=== PATIENT | male | born 1990 | race Caucasian/White ===

== ENCOUNTER 2016-09-13 21:59 | Emergency (ER) | payer BC, OTHER ==
[2016-09-13 22:14] VITALS: BP 139/81
[2016-09-13] MEDS ORDERED: Acetaminophen/oxyCODONE 325-5 MG Tab PO ONE (22:23)
[2016-09-13] MEDS ORDERED: traMADol 50 MG Tab PO ONE ×2 (22:25→22:26)
--- NOTE | 2016-09-13 22:31 | EDM.PDOC ---
ED HPI GENERAL MEDICAL PROBLEM - General Chief Complaint: General Stated Complaint: TOOTHPAIN Time Seen by Provider: 09/13/16 22:10 Source of Information: Reports: Patient, Family History Limitations: Reports: No limitations - History of Present Illness INITIAL COMMENTS - FREE TEXT/NARRATIVE: José comes in with dental pain following extensive restorations involving #18, # 19, #20 and is unable to sleep. His follow up appt with DDS is later this week. His general health is good. Tooth/Teeth Pain Score (Numeric/FACES): 10 - Related Data Allergies Allergy/AdvReac Type Severity Reaction Status Date / Time No Known Allergies Allergy Verified 09/13/16 22:07 Home Meds: Home Meds Acetaminophen [Tylenol] 650 mg PO Q6H 09/13/16 [History] Ibuprofen [Motrin] 800 mg PO Q6H PRN 09/13/16 [History] Omeprazole Magnesium [Prilosec Otc] 40 mg PO DAILY 09/13/16 [History] Venlafaxine HCl [Venlafaxine ER] 75 mg PO DAILY 09/13/16 [History] Past Medical History - Past Health History Medical/Surgical History: Denies Medical/Surgical History Social & Family History - Tobacco Use Smoking Status *Q: Current Every Day Smoker Years of Tobacco use: 10 Packs/Tins Daily: 1 - Caffeine Use Caffeine Use: Reports: Coffee, Energy drinks, Soda - Recreational Drug Use Recreational Drug Use: No ED ROS GENERAL - Review of Systems Review Of Systems: See Below Constitutional: Reports: no symptoms HEENT: Reports: Dental pain Respiratory: Reports: No Symptoms Cardiovascular: Reports: No symptoms Endocrine: Reports: no symptoms GI/Abdominal: Reports: No symptoms Musculoskeletal: Reports: no symptoms Skin: Reports: no symptoms Neurological: Reports: No Symptoms Psychiatric: Reports: No symptoms Hematologic/Lymphatic: Reports: no symptoms Immunologic: Reports: no symptoms ED EXAM, GENERAL - Physical Exam Exam: See Below Exam Limited By: No limitations General Appearance: alert, WD/WN, mild distress Ears: normal external exam Nose: normal inspection Throat/Mouth: Normal lips, Normal gums, Normal oropharynx, Normal voice, Other ( tender #18, #19, #20 to palpation; no gingival swelling, amalgums look fine) Head: normocephalic Neck: normal inspection, supple, non-tender, full range of motion Respiratory/Chest: lungs clear, normal breath sounds Cardiovascular: regular rate, rhythm, no murmur Back Exam: normal inspection Extremities: normal inspection Neurological: alert, oriented, CN II-XII intact, normal gait, no motor/sensory deficits Psychiatric: normal affect, normal mood Skin Exam: Warm, Dry Lymphatic: no adenopathy Course - Vital Signs Text/Narrative:: José was administered Percocet 5/325 tab in the ED. He was discharged clinically stable. Last Recorded V/S: Last Vital Signs Temp 36.5 C 09/13/16 22:13 Pulse 82 09/13/16 22:13 Resp 20 09/13/16 22:13 BP 139/81 09/13/16 22:13 Pulse Ox 97 09/13/16 22:13 - Orders/Labs/Meds Orders: Active Orders 24 hr Category Date Time Status traMADol [Ultram] Med 09/13/16 22:25 Once 50 mg PO ONETIME ONE Meds: Medications Discontinued Medications Generic Name Dose Route Start Last Admin Trade Name Jodie PRN Reason Stop Dose Admin Oxycodone/Acetaminophen 1 tab 09/13/16 22:23 Percocet 325-5 Mg PO 09/13/16 22:24 ONETIME ONE Departure - Departure Time of Disposition: 22:30 Disposition: Home, Self-Care 01 Condition: fair Clinical Impression: Dental disorder Forms: ED Department Discharge - Problem List & Annotations (1) Dental disorder SNOMED Code(s): 461388798, 101869062 Code(s): K08.9 - DISORDER OF TEETH AND SUPPORTING STRUCTURES, UNSPECIFIED Status: Acute Annotation/Comment:: I dispensed Tramadol 50 mg tabs #8 for breakthrough dental pain. He will follow up with DDS. - Problem List Review Problem List Initiated/Reviewed/Updated: Yes - My Orders Last 24 Hours: My Active Orders 09/13/16 22:25 traMADol [Ultram] 50 mg PO ONETIME ONE - Assessment/Plan Last 24 Hours: My Active Orders 09/13/16 22:25 traMADol [Ultram] 50 mg PO ONETIME ONE Plan: No commercial driving before tomorrow morning. Follow up with DDS.
== END 2016-09-13 22:40 | disposition home or self-care (01) ==
LOC: FB.ED 21:59
DX: K08.9 Disorder of teeth and supporting structures, unspecified (principal); F17.210 Nicotine dependence, cigarettes, uncomplicated; Z79.899 Other long term (current) drug therapy
CPT/HCPCS: 99282; A9270